=== PATIENT | male | born 1960 | race Caucasian/White ===

== ENCOUNTER → 2020-12-03 | Outpatient (CLI) | payer BC ==
[~2020-12-03] MED LIST: ASPIRIN 81M81 MG/TA2 PO; ASPIRIN E.C. 8181 MG PO; ATIVAN 1MG T1 MG/TAB PO; BENADRYL25 M2 PO; BENADRYL50 MG PO; COLACE 100100 MG/CAP PO; FIBERCON PO; FISH OIL CONC1000 MG PO; GLUCOPHAGE500 MG/TAB PO; GLUCOSAMINE & C1 CA1 PO; GLUCOSAMINE SUL1 POW PO; IBREN600 MG PO; LEVAQUIN 5500 MG/TA1 PO; LEXAPRO 10MG10 MG PO; LORAZEPAM1 MG PO; MELATONIN5 M1 SL; MULTIPLE VITAMI1 CAP PO; NEXIUM 40MG40 MG PO; NORCO 325 MG-51 TAB PO; NORCO 325 MG-7.1 TAB PO; OMEGA-3 FISH1200 MG PO; PHENERGAN 25 TA25 MG PO; PREVACID 15MG15 M1 PO; PREVACID SOLUTA30 M2 PO; PROVENTIL0.09 MG/A1 IH; SIMVASTATIN40 MG PO; SINGULAIR 110 MG/TAB PO; SINGULAIR10 MG PO; TYLENOL 500MG500 MG PO; TYLENOL PM EXTR1 TA1 PO; VENTOLIN0.09 MG IH; VIAGRA50 M1 PO; ZICAM; ZOCOR 40MG40 MG PO
== END ==
LOC: COL.RAD 10:51
DX: K31.89 Other diseases of stomach and duodenum (principal); K21.9 Gastro-esophageal reflux disease without esophagitis

== ENCOUNTER 2021-01-06 05:30 | Day surgery (SDC) | payer BC ==
[2021-01-06] VITALS (11 sets, daily range): BP systolic 134–156; BP diastolic 72–93; PULSE 59–79; TEMP 97.9–99
[~2021-01-06] VITALS: Ht 180.3 cm; Wt 90.4 kg
[~2021-01-06 05:30] MED LIST changes: -ASPIRIN 81M81 MG/TA2 PO; -BENADRYL25 M2 PO; -COLACE 100100 MG/CAP PO; -FIBERCON PO; -GLUCOPHAGE500 MG/TAB PO; -NORCO 325 MG-51 TAB PO; -TYLENOL 500MG500 MG PO; -VENTOLIN0.09 MG IH; -VIAGRA50 M1 PO
[2021-01-06] MEDS ORDERED: NEXIUM 40MG40 MG PO (06:44)
[2021-01-06] MEDS ORDERED: ASPIRIN 81M81 MG/TA2 PO (06:44)
[2021-01-06] MEDS ORDERED: GLUCOPHAGE500 MG/TAB PO (06:46)
[2021-01-06] MEDS ORDERED: SINGULAIR 110 MG/TAB PO (06:47)
[2021-01-06] MEDS ORDERED: LEXAPRO 10MG10 MG PO (06:47)
[2021-01-06] MEDS ORDERED: ATIVAN 1MG T1 MG/TAB PO (06:48)
[2021-01-06] MEDS ORDERED: ZOCOR 40MG40 MG PO (06:48)
[2021-01-06] MEDS ORDERED: TYLENOL 500MG500 MG PO (06:49)
[2021-01-06] MEDS ORDERED: MELATONIN5 M1 SL (06:49)
[2021-01-06] MEDS ORDERED: COLACE 100100 MG/CAP PO (06:50)
[2021-01-06] MEDS ORDERED: FIBERCON PO (06:51)
[2021-01-06] MEDS ORDERED: BENADRYL25 M2 PO (06:52)
[2021-01-06] MEDS ORDERED: VIAGRA50 M1 PO (06:53)
[2021-01-06] MEDS ORDERED: VENTOLIN0.09 MG IH (06:54)
--- NOTE | 2021-01-06 10:11 | NUR ---
PT TO ROOM 331 PER BED WITH REPORT FROM [facility] BACK PACU @1000. PT IS A/O X4, LUNGS CLEAR, BOWEL SOUNDS PRESENT. 6 LAP SITES CDI WITH BANDAIDS OVER INCISION. SCDS PLACED BILATERALLY. IV TO PUMP. ORIENTED PT AND TO ROOM. BOTH VERBALIZED UNDERSTANDING.
--- NOTE | 2021-01-06 10:21 | NUR ---
PT RESTING IN BED, IV TO PUMP PER ORDERS. PT DENIES SURGICAL PAIN ONLY PAIN IN BILATERAL SHOULDERS. WM BLANKETS PROVIDED.
--- NOTE | 2021-01-06 11:37 | NUR ---
ANGÉLICA PROVIDED TO PT PER REQUEST. PT TOLERATING WELL. VSS. PT DENIES PAIN.
--- NOTE | 2021-01-06 13:48 | NUR ---
PT UP TO RECLINER INDEPENDENTLY. TAKING GOOD PO INTAKE. REPORTING SHOULDER PAIN. UP AND INDEPENDENT IN ROOM.
--- NOTE | 2021-01-06 14:41 | NUR ---
PT INDEPENDENT IN HAYES AMBULATING 200 + FT WITH STEADY GAIT.
--- NOTE | 2021-01-06 15:16 | NUR ---
PT CONTINUES TO AMBULATE INDEPENDENTLY.
--- NOTE | 2021-01-06 20:50 | NUR ---
Pt. sitting up in chair at this time. Pt. is A&OX3, assessment complete. INT to lt. hand patent. Pt. denies pain at this time. Abd. lap sites CDI. Pt. denies further needs, call light within reach.
[2021-01-07 00:58] VITALS: BP 134/75; PULSE 74; TEMP 98
[2021-01-07 03:37] VITALS: BP 125/69; PULSE 69; TEMP 98.1
[2021-01-07 08:00] VITALS: BP 133/76; PULSE 63; TEMP 98.1
--- NOTE | 2021-01-07 11:30 | NUR ---
Patient has been up and walking around without issues. He denies nausea and pain. He stated feeling like he is having some GERD. Patient is passing flatus without issues. Bandaids intact to incisions on abdomen. One site was draining in the night but is C/D/I now. No other changes at this time. Call light within reach.
--- NOTE | 2021-01-07 11:52 | NUR ---
SW met with the patient to discuss discharge plan. The patient lives in [place] with his , Mayte (ph#[phone]). He reports independence with ADLs and does not have any DME. The patient's PCP is Dr. Christo Mehta and he receives his medications from [email or web address]. He reports no difficulties obtaining his meds. The patient's DPOA-HC is in EMR and it designates his . The patient plans to return home with his upon discharge. No additional needs at this time. *Discharge plan: home with *
[2021-01-07 12:00] VITALS: BP 131/76; PULSE 58; TEMP 97.6
--- NOTE | 2021-01-07 12:18 | NUR ---
First visit from the milieu counselor. No needs right now.
[2021-01-07] MEDS ORDERED: NORCO 325 MG-51 TAB PO (16:36)
--- NOTE | 2021-01-07 17:30 | NUR ---
Patient is discharging home. Discharge instructions discussed with patient. Patients is here to take him. No questions verbalized about instructions. INT discontinued this am. He has his belongings packed up and ready to go. Patient is walking out with his who is a RN here at the hospital.
== END 2021-01-07 17:30 | disposition home or self-care (01) ==
LOC: SDCO 05:30 → SURG 10:00 → SDCO 01-07 17:30
DX: K21.9 Gastro-esophageal reflux disease without esophagitis (principal); K44.9 Diaphragmatic hernia without obstruction or gangrene; E11.9 Type 2 diabetes mellitus without complications; E78.00 Pure hypercholesterolemia, unspecified; J45.998 Other asthma; G47.33 Obstructive sleep apnea (adult) (pediatric); Z20.822 Contact with and (suspected) exposure to COVID-19; Z79.82 Long term (current) use of aspirin; Z79.899 Other long term (current) drug therapy; Z79.84 Long term (current) use of oral hypoglycemic drugs
CPT/HCPCS: OP; J0690; J1100; J1885; J2250; J2405; J2704; J3010; J7120